=== PATIENT | female | born 1930 | race Caucasian/White ===

== ENCOUNTER 2021-07-22 07:23 | Day surgery (SDC) | payer MEDICARE, BC ==
[2021-07-15 14:23] LABS: BASOPHILS # (AUTO) 0.1 X10'3 (0-0.2); BASOPHILS % (AUTO) 0.8 % (0-1); EOSINOPHILS # (AUTO) 0.2 X10'3 (0-0.9); EOSINOPHILS % (AUTO) 3.6 % (0-6); LYMPHOCYTES # (AUTO) 2.6 X10'3 (1.1-4.8); LYMPHOCYTES % (AUTO) 37.7 % (21-51); MEAN CORPUSCULAR HEMOGLOBIN 33.6 PG (27.0-31.0); MEAN CORPUSCULAR HGB CONC 34.3 g/dL (33.0-36.5); MEAN CORPUSCULAR VOLUME 98.1 FL (78-98); MEAN PLATELET VOLUME 8.3 FL (7.4-10.4); MONOCYTES # (AUTO) 0.6 X10'3 (0-0.9); MONOCYTES % (AUTO) 8.2 % (2-12); NEUTROPHILS # (AUTO) 3.4 X10'3 (1.8-7.7); NEUTROPHILS % (AUTO) 49.7 % (42-75); PRE OP HEMATOCRIT 42.2 % (42.0-52.0); PRE OP HEMOGLOBIN 14.5 g/dL (14.0-17.9); PRE OP PLATELET COUNT 214 X10'3 (140-440)
[2021-07-15 14:40] LABS: ALBUMIN 4.1 G/DL (3.4-5.0); ALBUMIN/GLOBULIN RATIO 1.1 (1.1-1.5); ALKALINE PHOSPHATASE 97 IU/L (46-116); BLOOD UREA NITROGEN 14 MG/DL (7-18); BUN/CREATININE RATIO 18.2 (5.4-32.0); CALCIUM 9.2 MG/DL (8.5-10.1); CHLORIDE 103 MMOL/L (99-107); CREATININE 0.77 MG/DL (0.60-1.10); PRE OP ALT 73 U/L (30-65); PRE OP ANION GAP 7 (8-16); PRE OP AST 47 U/L (10-37); PRE OP BILIRUB, TOTAL 0.4 MG/DL (0.0-1.0); PRE OP GLUCOSE 107 MG/DL (70-104); PRE OP POTASSIUM 4.1 MMOL/L (3.4-5.1); PRE OP SODIUM 141 MMOL/L (135-145); TOTAL CARBON DIOXIDE 30.7 MMOL/L (24-32); TOTAL PROTEIN 7.7 G/DL (6.4-8.2); eGFR > 90 ML/MIN
[~2021-07-22] VITALS: Ht 160 cm; Wt 72.5 kg
[2021-07-22] VITALS (11 sets, daily range): BP systolic 141–159; BP diastolic 63–82
[~2021-07-22 07:23] MED LIST: ANAS1TAB49 PO; APIX5TAB3 PO; CALC1CAP21 PO; CETI10CA19 PO; CYAN100082 PO; DOCUMENT DATE & TIME OF BETA-BLOCKER PO ONE; ESOM20CA10 PO; LOP25T PO; LOVA20TA2 PO; clindamycin 600mg/D5W 50ml 50 ML IV ONE; clindamycin-Cleocin 900mg/D5W 50 ML IV ONE; famotidine 20mg tablet PO ONE; ringers solution, lacted 1,000 ML IV SCH
[2021-07-22] MEDS ORDERED: LIDOcaine 1% 30ml preserv. free vial ONE (10:25)
[2021-07-22] MEDS ORDERED: fentaNYL/PF 50MCG/1 ML 2ML syringe ONE (10:56)
[2021-07-22] MEDS ORDERED: ketorolac trometh. 30mg/ml inj. ONE (10:56)
[2021-07-22] MEDS ORDERED: midazolam 1 mg/ML 2ml injection ONE (10:56)
[2021-07-22] MEDS ORDERED: BUPIVAcaine 0.5% inj/PF 30 ML ONE (11:11)
[2021-07-22] MEDS ORDERED: BUPIVAcaine 0.5% inj/PF 30 ml vial IJ ONE (11:20)
--- NOTE | 2021-07-22 12:00 | NUR ---
Received from OR via [facility], accompanied by Anesthesiologist DR MARQUES and report given by Anesthesiologist. PT DROWSY, DENIES PAIN. RIGHT HAND/WRIST W/BIAS DRSG COVERING INCISION CDI, FINGERS PWD, CER 1-2 SECONDS. Addendum: 07/22/21 at 1224 by Ida Bowden RN Amended: Links added.
--- NOTE | 2021-07-22 13:50 | NUR ---
PT UP AND ABLE TO AMBULATE, DENIES PAIN. D/C INSTRUCTIONS GIVEN AND GONE OVER W/PT AND PTS FAMILY MEMBER WHO VERBALIZED UNDERSTANDING. PT D/CD TO HOME VIA W/C TO PRIVATE VEHICLE W/O INCIDENT. PT BECAME NAUSEATED IN TRANSPORT TO PRIVATE VEHICLE. PT INSTRUCTED TO BREATH IN AND OUT NICE DEEP BREATHS, ALSO PLACED AN ICE PACK TO THE BACK OF HER NECK. AFTER A FEW MINUTES NAUSEA SUBSIDED, PT D/CD TO HOME. Addendum: 07/22/21 at 1510 by Ida Bowden RN Amended: Links added.
== END 2021-07-22 13:50 | disposition home or self-care (01) ==
LOC: PAS 07:23 → EDSEX 07:23 → PAS 13:50
PROVIDERS: ATTEND Orthopaedic Surgery Hand Surgery
DX: G56.01 Carpal tunnel syndrome, right upper limb (principal); E78.00 Pure hypercholesterolemia, unspecified; I25.10 Atherosclerotic heart disease of native coronary artery without angina pectoris; I10 Essential (primary) hypertension; K21.9 Gastro-esophageal reflux disease without esophagitis; Z88.1 Allergy status to other antibiotic agents; Z79.899 Other long term (current) drug therapy; Z79.01 Long term (current) use of anticoagulants; Z85.3 Personal history of malignant neoplasm of breast; Z98.890 Other specified postprocedural states; Z20.822 Contact with and (suspected) exposure to COVID-19; Z82.49 Family history of ischemic heart disease and other diseases of the circulatory system
CPT/HCPCS: 36415; 64721; 71046; 80053; 82948; 85025; 93005; J1885; J2250; J3010; J3490; J7030; J7120; S0020; U0003; U0005; Z7506; Z7512; A4215; A7000